=== PATIENT | male | born 2000 | race African-American/Black ===

== ENCOUNTER 2022-04-19 19:52 | Emergency (ER) | payer SELFPAY ==
[2022-04-19 21:09] LABS: Bilirubin Negative (Negative); Blood, Urine Negative (Negative); Clarity Clear (Clear); Glucose, Urine (Dipstick) Normal (Negative); Ketone, Urine Trace mg/dL (Negative); Leukocyte Negative Leu/uL (Negative); Nitrite Negative (Negative); Protein, Urine (Dipstick) 20 mg/dL (Neg-Trace); Specific Gravity, Urine 1.031 (1.002-1.036)
[2022-04-20 15:06] LABS: Chlam.trachomatis by PCR,Urine Not Detected (NotDetected)
== END 2022-04-19 21:52 | disposition left against medical advice (07) ==
LOC: ERS 19:52
DX: R30.0 Dysuria (principal); R35.0 Frequency of micturition; R10.9 Unspecified abdominal pain
CPT/HCPCS: 81003; 87491; 87591; 99283